=== PATIENT | female | born 1940 | race Caucasian/White ===

== ENCOUNTER → 2018-05-08 | Outpatient (CLI) | payer MEDICARE, BC ==
[~2018-05-08] MED LIST: ACIDOPHILIS PO; ACIDOPHILUS PO; ALEVE 220MG220 MG PO; ASPIRIN 32325 MG/TAB PO; ASPIRIN E.C. 8181 MG PO; B-121000 MCG PO; B6-5050 MG PO; BRILINTA90 MG PO; CALCIUM 1200 601 SGL PO; CALCIUM 500500 M2 PO; CLEOCIN HCL300 MG PO; COLACE 100100 MG/CAP PO; CORDARONE200 MG/TAB PO; COUMADIN 22.5 MG/TAB PO; CRESTOR 10MG10 MG PO; DRAMAMINE50 MG PO; DULCOLAX10 MG RC; EPA FISH OIL1000 MG PO; FERRATE325 MG PO; FLEXERIL 1010 MG/TAB PO; FOLIC ACID 40400 MCG PO; IRON65 M1 PO; K-DUR 2020 MEQ PO; LASIX 20MG TABL20 MG PO; LIDODERM PATCH; LIDODERM PATCH TP; LIPITOR20 MG PO; LIVALO1 MG PO; LOPRESSOR 225 MG/TAB PO; LORTAB 5/500 501 TAB PO; MAGNESIUM250 M1 PO; MAGNESIUM250 MG PO; MASON NATURAL1200 MG PO; MAXZIDE 50 MG-71 TAB PO; MULTI-VITAMIN1 CTB PO; MULTIPLE VITAMI1 CAP PO; NATURE'S BLEND500 M1 PO; NIFEREX-150150 MG PO; NITROSTAT0.4 MG/TAB SL; NORCO 325 MG-51 TAB; NORCO 325 MG-51 TAB PO; OSCAL 500 TAB500 MG; OYSCO 500500 M1 PO; PAXIL 20MG20 MG PO; PEPCID 20MG TAB20 MG PO; PLAVIX 75MG TAB75 MG PO; PRILOSEC10 MG PO; PROZAC 20MG20 MG PO; PROZAC40 MG PO; STOOL SOFTENER100 M2 PO; TYLENOL 325MG325 MG PO; VITAMIN B-1000 MCG/T PO; VITAMIN B-6100 MG PO; VITAMIN C500 MG PO; VITAMIN D1000 IU PO; VITAMIN D31000 IU PO; VITAMIN D3400 IU PO; ZESTRIL 5MG5 MG PO; ZOFRAN 4MG T4 MG/TAB PO; ZOFRAN8 MG PO; [UNRECOGNIZED DRUG - OTHER] PO
== END ==
LOC: MC.RAD 12:53
DX: Z12.31 Encounter for screening mammogram for malignant neoplasm of breast (principal)

== ENCOUNTER 2019-11-28 10:29 | Emergency (ER) | payer MEDICARE, BC ==
[~2019-11-28] VITALS: Ht 160 cm; Wt 64.1 kg
[2019-11-28 10:36] VITALS: TEMP 98
[2019-11-28 11:56] LABS: BASO # 0.1 (0.0-0.2); BASO % 0.9 % (0.0-2.0); EOS # 0.1 (0.0-0.7); GRAN # 4.6 (1.4-6.5); GRAN % 79.2 % (42.2-75.2); HEMOGLOBIN 11.7 g/dl (12.5-16.0); LYMPH # 0.6 (1.2-3.4); LYMPH % 10.9 % (20.0-51.0); MEAN CELL VOLUME 93 fl (80.0-100.0); MEAN CORPUSCULAR HEMOGLOBIN 32 pg (27.0-31.0); MEAN CORPUSCULAR HGB CONC 35 g/dl (33.0-37.0); MEAN PLATELET VOLUME 9.8 fl (7.4-10.4); MONO # 0.5 (0.1-0.6); MONO % 7.8 % (1.7-9.3); PLATELET COUNT 149 K/mm3 (130-400); RED BLOOD COUNT 3.61 M/mm3 (4.10-5.30); REDCELL DISTRIBUTION WIDTH-CV 13.8 % (11.5-14.5)
[2019-11-28 11:58] LABS: HEMATOCRIT 33.7 % (37.0-47.0)
[2019-11-28 12:10] LABS: ALBUMIN 3.9 gm/dL (3.5-5.0); BILIRUBIN,TOTAL 0.8 mg/dL (0.0-1.0); CALCIUM 9.3 mg/dL (8.4-10.2); CREATININE, serum 0.66 (0.52-1.25); POTASSIUM 3.8 mmol/L (3.4-5.0); TOTAL PROTEIN 6.3 gm/dL (6.4-8.2)
[2019-11-28] MEDS ORDERED: TOPROL XL 25MG25 MG PO (12:42)
[2019-11-28] MEDS ORDERED: CRESTOR 10MG10 MG PO (12:42)
[2019-11-28] MEDS ORDERED: PROZAC 20MG20 MG PO (12:43)
[2019-11-28] MEDS ORDERED: PLAVIX 75MG TAB75 MG PO (12:43)
[2019-11-28] MEDS ORDERED: MAXZIDE 50 MG-71 TAB PO (12:44)
[2019-11-28 12:51] LABS: PROTHROMBIN TIME 11.7 SECONDS (9.7-12.8)
[2019-11-28 13:55] VITALS: BP 121/72
[2019-11-28 16:10] VITALS: PULSE 84
--- NOTE | 2019-11-28 16:12 | NUR ---
CHYNA pantoja responded to a licensed master social worker consult for the patient. Physical therapy recommends home with home health. CHYNA pantoja met with the patient. The patient lives alone and has some neighbor support. The patient is independent and has a cane and a walker, if needed. The patient has two sons in [place]. CHYNA pantoja attempted to contact one of them, Raymundo Ward , left message. CHYNA pantoja presented [employer]'s list of home health agencies that serve the geographical area of the patient's residence. The patient's choice is [facility]. CHYNA pantoja contacted Dr. Mario's office to ensure that she can follow the patient with the home health orders. Ana from Dr. Mario's office reports Dr. Mario can follow. Brenda Lilly PA-C, provided face to face certifcation. The patient drove herself to the ED, a taxi voucher was provided. CHYNA pantoja faxed then contacted Lauro from [facility] to inform him of the referral. CHYNA pantoja collaborated the above information with the patient's nurse.
== END 2019-11-28 16:30 | disposition home or self-care (01) ==
LOC: COL.ER 10:29
PROVIDERS: Emergency Medicine; Physician Assistant
DX: S06.0X0A Concussion without loss of consciousness, initial encounter (principal); S80.02XA Contusion of left knee, initial encounter; S80.01XA Contusion of right knee, initial encounter; S05.12XA Contusion of eyeball and orbital tissues, left eye, initial encounter; I25.2 Old myocardial infarction; I25.10 Atherosclerotic heart disease of native coronary artery without angina pectoris; I10 Essential (primary) hypertension; E78.5 Hyperlipidemia, unspecified; Z79.02 Long term (current) use of antithrombotics/antiplatelets; W01.198A Fall on same level from slipping, tripping and stumbling with subsequent striking against other object, initial encounter; Y92.009 Unspecified place in unspecified non-institutional (private) residence as the place of occurrence of the external cause
CPT/HCPCS: J2060; J2405; J3010; J7030